=== PATIENT | female | born 1975 | race Caucasian/White ===

== ENCOUNTER 2018-02-25 13:34 | Emergency (ER) | payer OTHER ==
[~2018-02-25] VITALS: Ht 160 cm; Wt 75.0 kg
[2018-02-25 15:02] VITALS: BP 111/63
== END 2018-02-25 15:02 | disposition home or self-care (01) ==
LOC: ED 13:34
DX: N39.0 Urinary tract infection, site not specified (principal)

== ENCOUNTER 2018-10-04 18:22 | Emergency (ER) | payer OTHER ==
[~2018-10-04] VITALS: Ht 160 cm; Wt 74.8 kg
[2018-10-04 18:42] VITALS: Ht 160 cm; Wt 74.8 kg
[2018-10-04 21:11] LABS: UA SPECIFIC GRAVITY 1.025 (1.005-1.035); microscopic required? YES; urine erythrocyte 2+ (NEGATIVE)
[2018-10-04 21:15] VITALS: BP 117/73
== END 2018-10-04 22:29 | disposition home or self-care (01) ==
LOC: ED 18:22
PROVIDERS: Emergency Medicine
DX: N10 Acute pyelonephritis (principal)
CPT/HCPCS: J0696